=== PATIENT | female | born 2000 | race Two or more races ===

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

== ENCOUNTER 2021-08-07 14:46 | Outpatient (REF) | payer OTHER, SELFPAY ==
--- NOTE | ~2021-08-07 | XR_ITS ---
EXAMINATION: XR ANKLE, LEFT CLINICAL INFORMATION: Left ankle injury. COMPARISON: None TECHNIQUE: AP, lateral, and mortise views of the left ankle. FINDINGS: There is bimalleolar soft tissue swelling. The ankle mortise and subtalar joints are normal. No visible acute fracture, dislocation or subluxation seen. XR/XR ankle LT min 3V IMPRESSION: Bimalleolar is soft tissue swelling. Question ligamentous injury. No acute fracture, dislocation or subluxation seen.
== END 2021-08-07 14:47 | disposition home or self-care (01) ==
LOC: HO.XRAY 14:46
PROVIDERS: Visit Provider Pediatrics
DX: S99.912A Unspecified injury of left ankle, initial encounter (principal)
CPT/HCPCS: 73610

== ENCOUNTER 2023-11-06 13:27 | Outpatient (AMB) | payer OTHER, SELFPAY ==
--- NOTE | 2023-11-06 13:29 | A.OFFPC_ITS ---
Vital Signs 11/06/23 13:32 Height 5 ft 1 in Weight 156 lb BMI 29.5 BP 100/70 Blood Pressure Location Rt brachial Position Sitting Pulse 98 Pulse Source Pulse Oximeter Pulse Oximetry (%) 99 Oxygen Delivery Method Room Air Intake Visit Reasons: f/u possible physical Intake Note: Patient is here today for a physical and [place] from [employer] 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 Required: No Consulting Networking Engineer: Present Accompanied by: Mother Allergies Seasonal Allergies Allergy (Mild, Verified 11/07/23 06:25) Dry Eye Medication List - Last Reconciled 11/07/23 by Ilya Cope MD No Known Home Meds Tobacco use date assessed: 11/06/23 Dental Screening Dental Screen Date: 11/06/23 Did you have a dental visit in the last 12 months?: Yes Did you have a dental problem in the last 6 months where you did not have access to dental care?: No Was dental information given to patient?: Patient has dentist HPI f/u possible physical HPI Details 23 yr old female presents to the office requesting a physical. She is accompanied by her mother. In addition patient is requesting a neuro psyc eval and a dermatolgy referral. Pt has a diagnosis of Cognitive developmental delay. This was diagnosed in childhood after a neuropsych eval. Patient always needed assistance in school and has finally completed her HS diploma. She is employed one day a week and is registered for [employer]. Always supervised. She is able to do her own personal hygiene. Mother wants another neuro psych eval done as an adult. Patient has warts in her toes and a rash on the scalp that is progressively worsening. Her periods are regular and she is on contraception. REPLACED BY [facility] Medical History Cognitive developmental delay Warts of foot Seborrheic dermatitis Surgical History No pertinent past surgical history Family History Mother Mental and behavioral problem HTN (hypertension) Father Mental and behavioral problem Substance abuse Other Mental health disorder Substance use disorder Social History Household Members: Adopted Family Housing: House Alcohol intake: never Patient Tobacco Use Status: Never used Tobacco e-Cigarette/Vaping Use: Never Used Second Hand Smoke Exposure: No service: No Current occupational status: employed Current occupation: [employer] Cognitive needs: No Hearing needs: No Vision needs: Yes (glasses ) Questionnaire PHQ-9 Over the last 2 weeks, how often have you been bothered by any of the following problems? 1. Little interest or pleasure in doing things: not at all 2. Feeling down, depressed, or hopeless: not at all 3. Trouble falling or staying asleep, or sleeping too much: not at all 4. Feeling tired or having little energy: not at all 5. Poor appetite or overeating: not at all 6. Feeling bad about yourself - or that you are a failure or have let yourself or your family down: not at all 7. Trouble concentrating on things, such as reading the newspaper or watching television: not at all 8. Moving or speaking so slowly that other people could have noticed. Or the opposite - being so fidgety or restless that you have been moving around a lot more than usual: not at all 9. Thoughts that you would be better off or of hurting yourself in some way: not at all Total score: 0 Depression Screening Interpretation: Negative Depression Screening Done: Yes Source: Developed by Drs. Vinny Gamign, Kay Ayala, Keagan Camacho and colleagues, with an educational christine from [employer]. Thrive Questionnaire Date Thrive assessed: 11/06/23 I am a: Patient What is your living situation today?: I have a steady place to live Within the past 12 months, did the food you bought not last and you didn't have the money to get more?: Never true Within the past 12 months, did you worry whether your food would run out before you got money to buy more?: Never true Do you have trouble paying for medicines?: No Do you have trouble getting transportation to medical appointments?: No Do you have trouble paying your heating and electricity bill?: No Do you have trouble taking care of your child, family member or friend?: No Do you have trouble with day-to-day activities such as bathing, preparing meals, shopping, managing finances, etc.?: No Are you currently unemployed and looking for a job?: No Are you interested in more education?: No Currently or been in a relationship where the following occur: no concerns reported THRIVE Score: 0 AUDIT C Alcohol Use Questionnaire (AUDIT-C) 1. How often do you have a drink containing alcohol?: Never Total Score: 0 DONTAE-7 AMB Questionnaire DONTAE-7 Date DONTAE - 7 assessed: 11/06/23 Feeling nervous, anxious, or on edge: 0 = Not at all Not being able to stop or control worryin = Not at all Worrying too much about different things: 0 = Not at all Trouble relaxin = Not at all Being so restless that it is hard to sit still: 0 = Not at all Becoming easily annoyed or irritable: 0 = Not at all Feeling afraid as if something awful might happen: 0 = Not at all Total DONTAE-7 score (0-4 normal; 5-9 mild; 10-14 moderate; 15-21 severe): 0 Source: Developed by Drs. Vinny Gaming, Kay Ayala, Keagan Camacho and colleagues, with an educational christine from [employer]. Physical exam (Primary Care) Vital Signs: Last Vital Signs Pulse 98 11/06/23 13:32 BP 100/70 11/06/23 13:32 Pulse Ox 99 11/06/23 13:32 Oxygen Delivery Method Room Air 11/06/23 13:32 BMI result Body Mass Index 29.5 Tobacco/Smoking Status: Tobacco use Status Tobacco use date assessed 11/06/23 11/06/23 13:37 Patient Tobacco Use Status Never used Tobacco 11/06/23 13:37 e-Cigarette/Vaping Use Never Used 11/06/23 13:37 PHQ-9: PHQ-9 Score PHQ-9: Total score 0 11/06/23 15:49 Depression Screening Interpretation: Negative Thrive Assessment: Date of Thrive Assessment Date Thrive assessed 11/06/23 11/06/23 13:37 Currently or been in a relationship where the following occur: no concerns reported Const General: cooperative and healthy appearing Nutritional Appearance: well nourished Orientation/consciousness: patient oriented x3 Limitations: no limitations HENMT Head: Yes normal to inspection Eyes General: appearance normal, both eyes and all related structures Neck Neck: Yes normal visual inspection Chest Chest palpation & inspection: normal palpation of entire chest wall Resp Effort & Inspection: normal respiratory effort Skin Other: Feet: Warty outgrowths in all her toes. Scalp: Seborrhea Neuro General: patient oriented x3 Assessment and Plan Assessment & Plan (1) Cognitive developmental delay: Code(s): F81.9 - Developmental disorder of scholastic skills, unspecified Plan: I agreed with the request. Not sure where she should be referred. I have sent a message to the referral department for guidance. (2) Seborrheic dermatitis: Code(s): L21.9 - Seborrheic dermatitis, unspecified Plan: Dermatology appt scheduled. (3) Warts of foot: Code(s): B07.9 - Viral wart, unspecified Plan: Dermatology appt scheduled Orders: Orders UA and rflx microscopic 11/06/23 B07.9 - Viral wart, unspecified, F81.9 - Deve lopmental disorder of scholastic skills, unspecified, L21.9 - Seborrheic dermatitis, unspecified Basic Metabolic Panel 11/06/23 B07.9 - Viral wart, unspecified, F81.9 - Deve lopmental disorder of scholastic skills, unspecified, L21.9 - Seborrheic dermatitis, unspecified Complete Blood Count no Diff 11/06/23 B07.9 - Viral wart, unspecified, F81.9 - Developmental disorder of scholastic skills, unspecified, L21.9 - Seborrheic dermatitis, unspecified Lipid Panel 11/06/23 B07.9 - Viral wart, unspecified, F81.9 - Developmental disorder of scholastic skills, unspecified, L21.9 - Seborrheic dermatitis, unspecified Liver Panel 11/06/23 B07.9 - Viral wart, unspecified, F81.9 - Developmental dis order of scholastic skills, unspecified, L21.9 - Seborrheic dermatitis, unspecified Thyroid Stimulating Hormone 11/06/23 B07.9 - Viral wart, unspecified, F81.9 - Developmental disorder of scholastic skills, unspecified, L21.9 - Seborrheic dermatitis, unspecified Referrals Dermatology Referral B07.9 - Viral wart, unspecified, F81.9 - Developmental disorder of scholastic skills, unspecified, L21.9 - Seborrheic dermatitis, unspecified Coding Level of Care Code Est Pt Level 3 (34706) Est Pt Prev Care 18-39y(05132) Diagnoses Cognitive developmental delay F81.9 Seborrheic dermatitis L21.9 Warts of foot B07.9
[2023-11-06 13:32] VITALS: BP 100/70; PULSE 98; O2SAT 99; BMI 29.5
== END 2023-11-06 14:06 | disposition home or self-care (01) ==
PROVIDERS: PCP Nurse Practitioner Family; Visit Provider Internal Medicine
DX: Z00.00 Encounter for general adult medical examination without abnormal findings (principal); F81.9 Developmental disorder of scholastic skills, unspecified; L21.9 Seborrheic dermatitis, unspecified; B07.9 Viral wart, unspecified
CPT/HCPCS: 99213; 99395

== ENCOUNTER 2023-11-19 10:46 | Outpatient (REF) | payer OTHER, SELFPAY ==
[2023-11-19 12:03] LABS: Hemoglobin 13.3 g/dl (12.0-16.0); Mean Corpuscular HGB Conc 33.3 g/dl (31.0-35.0); Mean Corpuscular Hemoglobin 31.9 pg (27.0-33.0); Mean Corpuscular Volume 95.9 fL (80.0-98.0); Mean Platelet Volume 10.6 fL (9.4-12.3); Platelet Count 255 X10*3/uL (160-400); Red Blood Count 4.17 X10*6/uL (4.20-5.50); Red Cell Distribution Width 11.7 % (11.0-16.0)
[2023-11-19 13:17] LABS: Alanine Aminotransferase 25 U/L (0-31); Albumin Level 4.2 g/dL (3.5-5.0); Alkaline Phosphatase 71 U/L (39-117); Anion Gap 10 (12-20); Aspartate Amino Transferase 22 U/L (5-31); Bilirubin Direct 0.2 mg/dL (0.0-0.5); Bilirubin Total 0.9 mg/dL (0.0-1.0); Blood Urea Nitrogen 12 mg/dL (9-16); Carbon Dioxide 28 mmol/L (22-29); Chloride 105 mmol/L (96-108); Cholesterol 198 mg/dL (<200); Estimated Glomerular Filt Rate > 60; Glucose Random 83 mg/dL (60-115); HDL Cholesterol 70 mg/dL (>40); LDL Cholesterol Calculated 118 mg/dL (<100); Potassium 3.9 mmol/L (3.3-5.1); Sodium 139 mmol/L (135-145); Total Protein 7.1 g/dL (6.5-8.0); Triglycerides 52 mg/dL (<150)
[2023-11-19 13:21] LABS: Thyroid Stimulating Hormone 1.97 uIU/mL (0.32-4.0)
[2023-11-19 16:35] LABS: Glucose Urine UA Negative (Negative); Leukocyte Esterase Urine Small (1+) (Negative); Nitrite Urine Negative (Negative); PH 6.5 (5.0-9.0); Specific Gravity - Urine >= 1.030 (1.005-1.025); UMIC TRIGGER UA YES; Urine Blood Negative (Negative); Urine Ketones Negative (Negative); Urine Protein Negative (Neg-Trace)
[2023-11-19 16:36] LABS: Appearance Urine Hazy; Color Urine Yellow
[2023-11-19 18:23] LABS: Bacteria Urine 1+ (None Seen); Hyaline Casts Urine 0-2 /LPF (0-2); RBC Urine 0-2 /HPF (0-2); WBC Urine 0-5 /HPF (0-5)
== END 2023-11-19 10:47 | disposition home or self-care (01) ==
LOC: HO.LAB 10:46
PROVIDERS: PCP Internal Medicine; Visit Provider Internal Medicine
DX: B07.9 Viral wart, unspecified (principal); L21.9 Seborrheic dermatitis, unspecified; F81.9 Developmental disorder of scholastic skills, unspecified
CPT/HCPCS: 36415; 80048; 80061; 80076; 81001; 84443; 85027

== ENCOUNTER 2024-08-05 10:35 | Outpatient (AMB) | payer OTHER, SELFPAY ==
--- NOTE | 2024-08-05 10:45 | MHC.OFFVIS ---
Intake Visit Reasons: nexplaon removal per Sound Assistant: Sound Assistant Present (Dori Biggs, CASEY, Nya) Accompanied by: Self / Same As Patient Allergies Seasonal Allergies Allergy (Mild, Verified 08/05/24 10:46) Dry Eye HPI Comments Details: Presenting for Nexplanon removal, it was inserted in 08/01. [facility] Medical History Cognitive developmental delay Warts of foot Seborrheic dermatitis Surgical History No pertinent past surgical history Family History Mother Mental and behavioral problem HTN (hypertension) Father Mental and behavioral problem Substance abuse Other Mental health disorder Substance use disorder Social History Household Members: Adopted Family Housing: House Alcohol intake: never Patient Tobacco Use Status: Never used Tobacco e-Cigarette/Vaping Use: Never Used Second Hand Smoke Exposure: No service: No Current occupational status: employed Current occupation: [employer] Cognitive needs: No Hearing needs: No Vision needs: Yes (glasses ) Office Procedures Contraception Insert/Removal Details Details: Counseling/Consent: After discussing with the patient the risks of the procedure including bleeding, infection, scar tissue formation, , possible injury to blood vessels or nerves, chronic arm pain, blood transfusion, and irregular unpredictable bleeding Preopdx: Requesting Nexplanon removal Op: Nexplanon Removal Post op dx: same EBL= 10 cc Procedure: After discussing with the patient the risks of the procedure including bleeding, infection, scar tissue formation, the patient signed the consent and agreed with the plan; all questions answered. The patient was then put in the dorsal supine position with Left arm in which Nexplanon is located exposed. Then the area was scrubbed with betadine. Nexplanon was located next by palpation and the end closest to the elbow was marked with a sterile marker. 5cc 1% Xylocaine was used to anesthetize the area at the site near the tip of Nexplanon. Next, a 3 mm incision in the longitudinal direction of the arm at the tip of the implant was made and the Nexplanon was pushed toward the incision until the tip was visible. The implant was grasped with a curved mosquito forceps and pulled out gently. Then incision was closed with steri-strips approximating the edges and an adhesive bandage was applied. A pressure bandage was applied with sterile gauze to minimize bruising. At the end explained to the patient that she is not covered with contraception anymore and recommended for her to use another contraceptive method. Discharge instructions: Patient was instructed to call if any of the following occurs :temperature above 100.4, pain at the side of the incision, redness, discharge or gapping, arm pain or bleeding. All questions answered patient verbalized understanding . This note was generated with a voice recognition program. Some errors may have been overlooked during the review of this note. Sometimes these errors may affect the content or meaning of a given sentence. 24865 - Removal Office Meds Nexplanon 68 mg subdermal implant Performing Provider: Joseph Ledesma MD Performing Location: [facility] Documented (not given) by: Joseph Ledesma MD on 08/05/24 11:21 Dose Route Admin Location Dispensed Lot Number Expiration Date [facility] Advertising Consultant 1 implant subdermal ea Assessment & Plan Assessment & Plan (1) Nexplanon removal: Code(s): Z30.46 - Encounter for surveillance of implantable subdermal contraceptive Category: Medical Plan: Nexplanon removed, see procedure (2) Family planning: Code(s): Z30.09 - Encounter for other general counseling and advice on contraception Category: Social Hx Plan: Discussed with the patient the different options of control including control pills/Nuvaring, DMPA, different types of IUD ?s ( cu vs progesterone) , sterilization. All the pros, cons, risks and benefits of each were discussed with the patient. The patient decided to go ahead with Mirena IUD, so a more detailed discussion was carried on including mechanism of action, risks (infection, uterine perforation, failure with ectopic , septic AB, ovarian cyst and pelvic pain, increased breast cancer risk and others) benefits (efficient contraceptive method, others), GC/CG will be taken next visit and the patient was asked to call day one of next cycle for IUD insertion. Orders: Orders AMB Nexplanon/Implanon Insertion/Removal - Practice Supplied Today Z30.46 - Encounter for surveillance of implantable subdermal contraceptive Medications: New Nexplanon (etonogestrel) 1 implant subdermal ONCE 1 ea 0RF NS Z30.46 - Encounter for surveillance of implantable subdermal contraceptive Coding Level of Care Code New Pt Level 3 (60965) Procedure Only Diagnoses Nexplanon removal Z30.46 Family planning Z30.09 CPT Codes Details - Contraception: 00783 - Removal ([id number])
== END 2024-08-05 12:02 | disposition home or self-care (01) ==
PROVIDERS: PCP Internal Medicine; Visit Provider Obstetrics & Gynecology
DX: Z30.09 Encounter for other general counseling and advice on contraception (principal); Z30.46 Encounter for surveillance of implantable subdermal contraceptive
CPT/HCPCS: 11982; 99203

== ENCOUNTER → 2024-08-05 10:35 | Outpatient (BNVA) | payer OTHER, SELFPAY | PROVIDERS: PCP Internal Medicine; Visit Provider Obstetrics & Gynecology | DX: Z30.46 Encounter for surveillance of implantable subdermal contraceptive (principal) | CPT/HCPCS: 11982; 99202 ==

== ENCOUNTER → 2024-08-10 08:44 | Outpatient (BNVA) | payer OTHER, SELFPAY | PROVIDERS: PCP Internal Medicine; Visit Provider Obstetrics & Gynecology | DX: Z30.017 Encounter for initial prescription of implantable subdermal contraceptive (principal); Z32.02 Encounter for pregnancy test, result negative | CPT/HCPCS: 11981; 81025; J7307 ==

== ENCOUNTER 2024-08-10 09:18 | Outpatient (AMB) | payer OTHER, SELFPAY ==
--- NOTE | 2024-08-10 08:44 | A.OFFVIS_ITS ---
Vital Signs 08/10/24 08:48 Height 5 ft 1 in Weight 177 lb BMI 33.4 BP 112/60 Intake Visit Reasons: Nexplanon insertion Director Of Pupil Personnel Program Required: No Information Interpreted: non-clinical & clinical Medical Liaison: Medical Liaison Present (Dori PEÑA) Accompanied by: Self / Same As Patient Allergies Seasonal Allergies Allergy (Mild, Verified 08/10/24 08:57) Dry Eye Is last menstrual period known: No (nexplanon) HPI Comments Details: Presenting requesting Nexplanon insertion [facility] Medical History Cognitive developmental delay Warts of foot Seborrheic dermatitis Surgical History No pertinent past surgical history Family History Mother Mental and behavioral problem HTN (hypertension) Father Mental and behavioral problem Substance abuse Other Mental health disorder Substance use disorder Social History Household Members: Adopted Family Housing: House Alcohol intake: never Patient Tobacco Use Status: Never used Tobacco e-Cigarette/Vaping Use: Never Used Second Hand Smoke Exposure: No service: No Current occupational status: employed Current occupation: [employer] Cognitive needs: No Hearing needs: No Vision needs: Yes (glasses ) Review of Systems Const All systems reviewed & are unremarkable except as noted in HPI and below Reports as per HPI and Reports no additional complaints GI Reports no additional complaints Reports no additional complaints Physical Exam Vital Signs: Last Vital Signs BP 112/60 08/10/24 08:48 BMI result Body Mass Index 33.4 Office Procedures Contraception Insert/Removal Details Details: Preopdx: Requesting Nexplanon insertion Op: Nexplanon insertion Post op dx: same EBL= 10 cc Procedure: After discussing with the patient the risks of the procedure including bleeding, infection, scar tissue formation, , and irregular unpredictable bleeding, Alternative options were discussed with the patient including but not limited: control pills, patch, NuvaRing, Depo-medroxyprogesterone acetate, copper/Progesterone IUD, sterilization, vasectomy, others The patient signed the consent and agreed with the plan; all questions answered. Urine test done in the office was negative Iodine was used to scrub the area. The insertion site was identified, at the inner side of the left upper arm about 9 cm above the medial epicondyle of the humerus. Next Xylocaine 1% was used to anesthetize the insertion area, and then the sterile preloaded disposable NEXPLANON applicator carrying the implant from its blister was removed from its box. With the free hand, the skin around the insertion site was stretched with thumb and index finger, the skin was punctured with the tip of the needle angled about 30 degrees, next the applicator was lowered to a horizontal position. While lifting the skin with the tip of the needle, the needle was slided to its full length. The purple slider was unlocked next by pushing it slightly down. Then the slider was moved fully back until it stopped, the presence of the implant in the patient?s arm was verified. A band aid and a wrap were applied around the arm. Instructions were given to the patient to call if temp>100.4, severe pain or redness at the site of the insertion. Instructions given to patient to use a backup method for control for the 1st 2 weeks. Patient 'smother was present during the procedure and counseling. The patient was instructed that the date of removal is exactly 3 years from today's date This note was generated with a voice recognition program. Some errors may have been overlooked during the review of this note. Sometimes these errors may affect the content or meaning of a given sentence. 63485 - Insertion Office Meds Nexplanon 68 mg subdermal implant Performing Provider: Joseph Ledesma MD Performing Location: [facility] Documented (not given) by: Joseph Ledesma MD on 08/10/24 09:13 Dose Route Admin Location Dispensed Lot Number Expiration Date [facility] Rigger Up 1 implant subdermal ea Results AMB Test Urine AMB Test Urine Negative Last Edit by CASEY Escoto on 08/10/24 08:51 Results Reviewed Results Reviewed: Laboratory Last Values [facility] Clinic Negative 08/10/24 08:51 Assessment & Plan Assessment & Plan (1) Nexplanon insertion: Code(s): Z30.017 - Encounter for initial prescription of implantable subdermal contraceptive Category: Medical Plan: Discussed with the patient the different options of control including control pills/Nuvaring, DMPA, IUD (Mirena, Paraguard), sterilization. All the pros, cons, risks and benefits of each were discussed with the patient. The patient decided to go ahead Nexplanon, so a more detailed discussion re: Nexplanon including mechanism of action, benefits, risks Nexplanon inserted, see procedure note Orders: Orders AMB HCG Urine Test Today Z32.02 - Encounter for test, result negative AMB Nexplanon/Implanon Insertion/Removal - Practice Supplied Today Z30.017 - Encounter for initial prescription of implantable subdermal contraceptive Medications: New Nexplanon (etonogestrel) 1 implant subdermal ONCE 1 ea 0RF NS Z30.017 - Encounter for initial prescription of implantable subdermal contraceptive Coding Level of Care Code Est Pt Level 3 (06283) Procedure Only Diagnoses Nexplanon insertion Z30.017 CPT Codes Details - Contraception: 46377 - Insertion ([id number])
[2024-08-10 08:48] VITALS: BP 112/60; BMI 33.4
--- OUTSIDE RECORDS SUMMARY | 2024-08-10 09:16 | XMS_ITS | Encounter Summary ---
Author Organization [facility] Address [address] [place] [address] Phone Care Team Providers Care Dry Pan Charger Name Role Phone Wendy Jones MD Primary Care Provider [phone] Encounter Details Date Type Department Care Team ([facility] st Contact Info) Description 01/24/2017 Conversion Encounter [facility] [address] [place] [address] Social History Tobacco Use Types Packs/Day Years Used Date Smoking Tobacco: Never Comments:Never smoker Comments Unknown Sex and Gender Information Value Date Recorded Sex Assigned at Not on file Legal Sex Female 5:16 PM EDT Gender Identity Not on file Sexual Orientation Not on file documented as of this encounter Plan of Treatment Not on file documented as of this encounter Visit Diagnoses Not on filedocumented in this encounter Care Teams Dry Pan Charger Relationship Specialty Start Date End Date Wendy Jones MD [address] [place] [address] PCP - General 01/18/17 11/05/22 documented as of this encounter
--- OUTSIDE RECORDS SUMMARY | 2024-08-10 09:16 | XMS_ITS | Encounter Summary ---
Author Organization [facility] Address [address] [place] [phone] Phone Care Team Providers Care Product Support Representative Name Role Phone Wendy Jones MD Primary Care Provider Encounter Details Date Type Department Care Team (Late st Contact Info) Description 02/22/2011 Documentation [facility] Family Medicine [address] [place] [address] Family Medicine, Physician [address] [place], [place] [phone] Social History Tobacco Use Types Packs/Day Years Used Date Smoking Tobacco: Never Assessed Comments Unknown Sex and Gender Information Value Date Recorded Sex Assigned at Not on file Legal Sex Female 5:16 PM EDT Gender Identity Not on file Sexual Orientation Not on file documented as of this encounter Plan of Treatment Not on file documented as of this encounter Visit Diagnoses Not on filedocumented in this encounter Care Teams Product Support Representative Relationship Specialty Start Date End Date Wendy Jones MD [address] [place] [id number] PCP - General 01/18/17 11/05/22 documented as of this encounter
--- OUTSIDE RECORDS SUMMARY | 2024-08-10 09:16 | XMS_ITS | Encounter Summary ---
Author Organization [facility] Address [address] [place] [phone] Phone Care Team Providers Care Roll Off Driver Name Role Phone Wendy Jones MD Primary Care Provider [phone] Encounter Details Date Type Department Care Team (Late st Contact Info) Description 10/24/2011 Documentation [facility] [place] Medicine [address] [place] [address] Family Medicine, Physician [address] [place], [place] [phone] Social History Tobacco Use Types Packs/Day Years [...] on filedocumented in this encounter Care Teams Roll Off Driver Relationship Specialty Start Date End Date Wendy Jones MD [address] [place] [id number] PCP - General 01/18/17 11/05/22 documented as of this encounter
--- OUTSIDE RECORDS SUMMARY | 2024-08-10 09:16 | XMS_ITS | Encounter Summary ---
Author Organization [facility] Address [address] [place] [phone] Phone Care Team Providers Care Department Store Salesperson Name Role Phone Wendy Jones MD Primary Care Provider [phone] Encounter Details Date Type Department Care Team (Late st Contact Info) Description 09/20/2010 Documentation [facility] Family Medicine [address] [place] [address] Family Medicine, Physician [address] [place], [place] [phone] Social History Tobacco Use Types Packs/Day Years [...] on filedocumented in this encounter Care Teams Department Store Salesperson Relationship Specialty Start Date End Date Wendy Jones MD [address] [place] [phone] PCP - General 01/18/17 11/05/22 documented as of this encounter
--- OUTSIDE RECORDS SUMMARY | 2024-08-10 09:16 | XMS_ITS | Encounter Summary ---
Author Organization [facility] Address [address] [place] [address] Phone Care Team Providers Care Waiter Waitress Name Role Phone Wendy Jones MD Primary Care Provider [phone] Encounter Details Date Type Department Care Team (Late st Contact Info) Description 04/09/2012 Documentation [facility] Family Medicine [address] [place] [address] Family Medicine, Physician [address] [place], [place] [phone] Social History Tobacco Use Types Packs/Day Years [...] on filedocumented in this encounter Care Teams Waiter Waitress Relationship Specialty Start Date End Date Wendy Jones MD [address] [place] [address] PCP - General 01/18/17 11/05/22 documented as of this encounter
--- OUTSIDE RECORDS SUMMARY | 2024-08-10 09:16 | XMS_ITS | Encounter Summary ---
Author Organization [facility] Address [address] [place] [address] Phone Care Team Providers Care Denture Contour Wire Specialist Name Role Phone Wendy Jones MD Primary Care Provider [phone] Encounter Details Date Type Department Care Team (Late st Contact Info) Description 03/26/2011 Documentation [facility] [place] [address] [place] [address] Family Medicine, Physician [address] [place], [place] [phone] Social History Tobacco Use Types Packs/Day Years [...] on filedocumented in this encounter Care Teams Denture Contour Wire Specialist Relationship Specialty Start Date End Date Wendy Jones MD [address] [place] [address]31 PCP - General 01/18/17 11/05/22 documented as of this encounter
--- OUTSIDE RECORDS SUMMARY | 2024-08-10 09:16 | XMS_ITS | Clinical Summary ---
Author Organization [facility] Address [address] [place] [address] Phone Care Team Providers Care Director Patient Name Role Phone Unavailable Primary Care Provider Unavailabl e Allergies No known active allergies Medications No known medications Active Problems Problem Noted Date Diagnosed Date Nexplanon in place 07/24/2021 Overview (07/27/2021): Placed 02/2017. Seen 07/24/21, overdue for removal. 07/27/21 - Nexplanon device removed, new Nexplanon inserted during same procedure. Assessment & Plan (04/25/2022 9:01 AM EST): 07/27/21 - Nexplanon device removed, new Nexplanon inserted during same procedure. Assessment & Plan (07/27/2021 2:44 PM EST): Nexplanon device removed, new Nexplanon inserted during same procedure. Urine hcg negative today. Assessment & Plan (07/24/2021 3:41 PM EST): Placed 02/2017. Seen 07/24/21, overdue for removal. Order consent form signed, so new Nexplanon device will be ordered. When available, she can schedule appointment for removal and reinsertion of Nexplanon. Aware she will need to be able to give urine specimen at that appointment for test. ADHD (attention deficit hype ractivity disorder), combined type 04/23/2011 Overview (02/13/2018): Dx by neuropsych 01/2011 but also with M.R. Mom does not want stim meds. IQ 62 Assessment & Plan (04/25/2022 9:00 AM EST): No meds Assessment & Plan (02/25/2020 1:52 PM EDT): No meds Intellectual functioning disability 07/11/2009 Overview (04/25/2022): Dx with Mild Intellectual disability ( IQ 62 ) by neuropsych 01/2011.Urine organic acids chromosome analysis, fragile-X DNA, , MRI of brain and spine were all normal. There is no evidence that she has an underlying progressive, neurological condition. nexplanon implanted - 02/2017 , 07/2021 Assessment & Plan (04/25/2022 9:32 AM EST): Getting supports through school till 22 years of age Mother has proxy guardianship - this is what [facility] recommends now Assessment & Plan (02/25/2020 1:52 PM EDT): Getting supports through school till 22 years of age Assessment & Plan (02/16/2019 9:40 AM EDT): In Functional Skills classroom at [place] Next Fall will need to see telecom network manager again about getting another nexplanon Resolved Problems Problem Noted Date Diagnosed Date Resolved Date '[id number]' infant wit h signs of malnutrition 02/16/2019 02/25/2020 Counseling and coordination of care 02/16/2019 06/30/2021 Precocious puberty 02/13/2018 8 Overview (02/13/2018): Is being followed by Endo, received Lupron, then had Histrelin implant x 2, removed in 2013. Discharged from Endo FU 06/2015. PDD (pervasive developmental disorder) 07/11/2009 02/16/2019 Overview (02/13/2018): There is no evidence of an underlying progressive, neurological condition. Dx with Mild MR ( IQ 62 ) by neuropsych 01/2011. Pt has full SPED in school Pt with signif language delays Immunizations Immunization Administration Dates Next Due COVID-19 Pfizer, bivalent, 12+ years 04/25/2022 DTaP 5 09/20/2005, 4,04/08/2002,01/16,2001 H1N1 07/11/2009 HPV, Quadrivalent 07/21/2013,03/19/2013,01/07/20 13 Hep A, ped/adol 01/12/2014,12/06/2010 Hep B, ped/adol 04/11/2005, 2,2001,08/14 Hib (PRP-T) 12/30/2002, 2,01/16/2002,10/15 IPV 09/20/2005, 3,01/16/2002,10/15 Influenza, injectable, quadr ivalent, preservative free 04/25/2022,04/24/2021,02/05/2020,02/16,02/02/2016 MMR 09/20/2005,10/14/2002 Meningococcal Conj (Menactra) MCV4P 02/16/2019,0 01/06/2013 Pneumococcal Conjugate 12/30/2002,2001,01/16/2002,10/15 Tdap 01/06/2013 Varicella 10/24/2007,10/14/2002 Family History * Patient is adopted Medical History Relation Name Comments Alcoholism Father Dnae Asthma Mother Funmilayo Relation Name Status Comments Father Dane Mother Funmilayo Alive Social History Tobacco Use Types Packs/Day Years Used Date Smoking Tobacco: Never Smokeless Tobacco: Never Comments:Never smoker Alcohol Use Standard Drinks/Week Comments No 0 (1 standard drink = 0.6 oz pur e alcohol) Hunger/Food Answer Date Recorded In the last 12 months, did y ou or your family ever eat less than you felt you should because there wasn't enough money for food? No 04/25/2022 Stable Housing Answer Date Recorded Are you worried that in the next 2 months you may not have stable housing? No 04/25/2022 Transportation Concerns Answer Date Rec orded In the last 12 months, have you or your family ever had to go without healthcare because you didn't have a way to get there? No 04/25/2022 Hazards in Home Answer Date Recorded Think about the place you li ve. Do you have problems with any of the following? Pests (mice or roaches), mold, no/not working smoke detectors, water leaks, no window guards. No 2021 Financing Utilities Answer Date Recorde d In the last 12 months, has t he electric, gas, oil, or water company threatened to shut off your services in your home? No 04/25/2022 Safety at Home Answer Date Recorded Are you or your family worried about feeling saf e in your home? No 04/25/2022 Outside Support Answer Date Recorded Do you feel that you need mo re support from other people or programs to help you care for yourself or your family? No 04/25/2022 Understanding Health Concerns Answer Da te Recorded Do you need help understandi ng your or your child's healthcare needs (diagnosis, medications, plan, etc.)? No 04/25/2022 Financing Health Concerns Answer Date R ecorded In the last 12 months, was t here a time when your child needed to see a doctor or get medications or supplies but could not because of cost? No 04/25/2022 Missing School or Work Answer Date Lamin rded Did you or your child miss s chool or work because of a health problem that could have been avoided? No 04/25/2022 Comments No Sex and Gender Information Value Date Recorded Sex Assigned at Not on file Legal Sex Female 5:16 PM EDT Gender Identity Not on file Sexual Orientation Not on file Last Filed Vital Signs Vital Sign Reading Time Taken Comments Blood Pressure 107/76 04/25/2022 8:50 AM EST Pulse 98 04/25/2022 8:50 AM EST Temperature 35.7 ??C (96.2 ??F) 04/25/2022 8:50 AM ES T Respiratory Rate - - Oxygen Saturation 95% 04/25/2022 8:50 AM EST Inhaled Oxygen Concentration - - Weight 67 kg (147 lb 12.8 oz) 04/25/2022 8:50 AM EST Height 156.2 cm (5' 1.5 ) 04/25/2022 8:50 AM EST Body Mass Index 27.47 04/25/2022 8:50 AM EST Plan of Treatment Health Maintenance Due Date Last Done Comments Men B Vaccine (1 of 2 - Standard) 2017 DTaP,Tdap,and Td Vaccines (7 - Td or Tdap) 01/06/2023 01/06/2013, 09/20/2005, 06/24/2003, Additional history exists Influenza Vaccines (#1) 2024 04/25/20, 04/24/2021, 02/05/2020, Additional history exists COVID-19 Vaccine (5 - 2023-2 5 season) 2024 04/25/2022, 05/14/2021, 11/09/2020, Additional history exists Chlamydia and Gonorrhea Screening 06/10/2024 04/25/2022, 04/24/2021, 02/16/2019, Additional history exists HIB Vaccines Completed 12/30/2002, 03/12, 01/16/2002, Additional history exists Pneumococcal Vaccine Completed 12/30/2002, 04/08/2002, 01/16/2002, Additional history exists Hepatitis B Vaccines Completed 04/11/2005, 01/16/2002, 2001, Additional history exists IPV Vaccines Completed 09/20/2005, 07/11, 01/16/2002, Additional history exists MMR Vaccines Completed 09/20/2005, 10/14/2002 Varicella Vaccines Completed 10/24/2007, 10/14/2002 HPV Vaccines Completed 07/21/2013, 03/10, 01/06/2013 Hepatitis A Vaccines Completed 01/12/2014, 12/07/19 11 Meningococcal Vaccine Completed 02/16/2019, 013 Procedures * Due to [place] law, this organization might not be sharing sensitive test results. Procedure Name Priority Date/Time Associated Diagnosis Comments CHLAMYDIA AND GONORRHEA, AMPLIFIED Routine 04/25/2022 9:05 AM EST Encounter for screening examination for sexually transmitted disease from Last 3 Months or Most Recently Relevant to Health Maintenance Results * Due to [place] law, this organization might not be sharing sensitive test results. * Chlamydia and Gonorrhoea, Amplified (04/25/2022 9:05 AM EST) Chlamydia Trachomatis, DNA Probe NEGATIVE (NEG) [facility] Comment: No Chlamydia Trachomatis RNA detected in this patient's sample ? (REFERENCE RANGE/NORMAL VALUE: NOT DETECTED) ? Note: This test uses sales and service engineer- mediated amplification method to detect rRNA from C. Trachomatis URINE GC AMP PROBE NEGATIVE (NEG) [facility] Comment: No Neisseria Gonorrhoeae RNA detected in this patient's sample ? (REFERENCE RANGE/NORMAL VALUE: NOT DETECTED) ? NOTE: This test uses sales and service engineer-mediated amplification method to detect rRNA from N.Gonorrhoeae. A negative result does not preclude infection. In the case of a negative urine result, testing of an endocervical(female) or urethral (male) specimen is recommended if there is high clinical suspicion of infection. Due to very high sensitivity of Nucleic Acid Amplification Test, false positive results may occur. Therefore, specimen handling is extremely important. In patients in whom the disease is unlikely, additional sample for testing should be considered after an initial positive result. The performance characteristics of this test have not been evaluated in children. The Aptima Combo2 assay is not intended for the evaluation of suspected sexual abuse or for other medico-legal indications. The ordering provider should assess if the patient had consensual sex without risk of sexual abuse. Consult the [facility] if needed. Contact phone number . Therapeutic failure or success cannot be determined with the Aptima Combo2 assay since nucleic acid may persist following appropriate antimicrobial therapy. The Centers for Disease Control and Prevention (CDC) recommends confirmatory retesting using culture or a different nucleic acid amplification test when positive results occur, if indicated. Testing performed or reported by [facility], a Service of [facility], [facility] [place] [address] Danial Cash MD, Spice Fumigator [facility]# [id number] Urine (Urine) 04/25/2022 9:0 5 AM EST 04/25/2022 2:42 PM EST us Wendy Jones MD LAB MICROBIOLOGY - GENERAL ORDER TAPAN Final Result [facility] from Last 3 Months or Most Recently Relevant to Health Maintenance
--- OUTSIDE RECORDS SUMMARY | 2024-08-10 09:16 | XMS_ITS | Encounter Summary ---
Author Organization [facility] Address [address] [place] [address] Phone Care Team Providers Care Assisted Living Director Name Role Phone Wendy Jones MD Primary Care Provider Encounter Details Date Type Department Care Team (Late st Contact Info) Description 03/23/2011 Documentation [facility] [place] [address] [place] [address] Family Medicine, Physician [address] [place], [place] [phone] Social History Tobacco Use Types Packs/Day Years [...] on filedocumented in this encounter Care Teams Assisted Living Director Relationship Specialty Start Date End Date Wendy Jones MD [address] [place] [address] 14055 PCP - General 01/18/17 11/05/22 documented as of this encounter
--- OUTSIDE RECORDS SUMMARY | 2024-08-10 09:16 | XMS_ITS | Encounter Summary ---
Author Organization [facility] Address [address] [place] [address] Phone Care Team Providers Care Line Palletizer Name Role Phone Wendy Jones MD Primary Care Provider [phone] Encounter Details Date Type Department Care Team (Late st Contact Info) Description 04/13/2011 Documentation [facility] [place] Family Medicine [address] [place] [address] Family Medicine, Physician [address] [place], [place] [phone] Social History Tobacco Use Types Packs/Day Years [...] on filedocumented in this encounter Care Teams Line Palletizer Relationship Specialty Start Date End Date Wendy Jones MD [address] [place] [address] PCP - General 01/18/17 11/05/22 documented as of this encounter
--- OUTSIDE RECORDS SUMMARY | 2024-08-10 09:16 | XMS_ITS | Encounter Summary ---
Author Organization [facility] Address [address] [place] [address] Phone Care Team Providers Care Ecological Economist Name Role Phone Wendy Jones MD Primary Care Provider [phone] Encounter Details Date Type Department Care Team (Late st Contact Info) Description 10/11/2011 Documentation [facility] [place] Family Medicine [address] [place] [address] Family Medicine, Physician [address] [place], [place] [phone] Social History Tobacco Use Types Packs/Day Years [...] on filedocumented in this encounter Care Teams Ecological Economist Relationship Specialty Start Date End Date Wendy Jones MD [address] [place] [address]49 PCP - General 01/18/17 11/05/22 documented as of this encounter
--- OUTSIDE RECORDS SUMMARY | 2024-08-10 09:16 | XMS_ITS | Encounter Summary ---
Author Organization [facility] Address [address] [place] [address] Phone Care Team Providers Care Apartment Leasing Manager Name Role Phone Wendy Jones MD Primary Care Provider [phone] Encounter Details Date Type Department Care Team (Late st Contact Info) Description 04/04/2012 Documentation [facility] [place] Family [place] [address] [place] [address] Family Medicine, Physician [address] [place], [place] [phone] Social History Tobacco Use Types Packs/Day Years [...] on filedocumented in this encounter Care Teams Apartment Leasing Manager Relationship Specialty Start Date End Date Wendy Jones MD [address] [place] [address]12 PCP - General 01/18/17 11/05/22 documented as of this encounter
--- OUTSIDE RECORDS SUMMARY | 2024-08-10 09:16 | XMS_ITS | Encounter Summary ---
Author Organization [facility] Address [address] [place] [address] Phone Care Team Providers Care Clinical Ob Name Role Phone Wendy Jones MD Primary Care Provider [phone] Encounter Details Date Type Department Care Team (Late st Contact Info) Description 04/15/2012 Documentation [facility] [place] [address] [place] [address] Family Medicine, Physician [address] [place], [place] [phone] Social History Tobacco Use Types Packs/Day Years [...] on filedocumented in this encounter Care Teams Clinical Ob Relationship Specialty Start Date End Date Wendy Jones MD [address] [place] [address] PCP - General 01/18/17 11/05/22 documented as of this encounter
--- OUTSIDE RECORDS SUMMARY | 2024-08-10 09:16 | XMS_ITS | Encounter Summary ---
Author Organization [facility] Address [address] [place] [address] Phone Care Team Providers Care Paralegal Name Role Phone Wendy Jones MD Primary Care Provider Encounter Details Date Type Department Care Team (Late st Contact Info) Description 04/03/2012 Documentation [facility] [place] Family Medicine [address] [place] [address] Family Medicine, Physician [address] [place], [place] [phone] Social History Tobacco Use Types Packs/Day Years [...] on filedocumented in this encounter Care Teams Paralegal Relationship Specialty Start Date End Date Wendy Jones MD [address] [place] [address] PCP - General 01/18/17 11/05/22 documented as of this encounter
--- OUTSIDE RECORDS SUMMARY | 2024-08-10 09:16 | XMS_ITS | Encounter Summary ---
Author Organization [facility] Address [address] [place] [address] Phone Care Team Providers Care Health Information Internship Name Role Phone Wendy Jones MD Primary Care Provider [phone] Encounter Details Date Type Department Care Team (Late st Contact Info) Description 03/27/2011 Documentation [facility] [place] Family Medicine [address] [place] [address] Family Medicine, Physician [address] [place], [place] [phone] Social History Tobacco Use Types Packs/Day Years [...] on filedocumented in this encounter Care Teams Health Information Internship Relationship Specialty Start Date End Date Wendy Jones MD [address] [place] [address] 67538 PCP - General 01/18/17 11/05/22 documented as of this encounter
--- OUTSIDE RECORDS SUMMARY | 2024-08-10 09:16 | XMS_ITS | Encounter Summary ---
Author Organization [facility] Address [address] [place] [address] Phone Care Team Providers Care Manager Intermediate Name Role Phone Wendy Jones MD Primary Care Provider [phone] Encounter Details Date Type Department Care Team (Late st Contact Info) Description 06/15/2016 Documentation [facility] [place] [address] [place] [address] Family Medicine, Physician [address] [place], [place] [phone] Social History Tobacco Use Types Packs/Day Years [...] on filedocumented in this encounter Care Teams Manager Intermediate Relationship Specialty Start Date End Date Wendy Jones MD [address] [place] [address] PCP - General 01/18/17 11/05/22 documented as of this encounter
--- OUTSIDE RECORDS SUMMARY | 2024-08-10 09:16 | XMS_ITS | Encounter Summary ---
Author Organization [facility] Address [address] [place] [address] Phone Care Team Providers Care Block Making Machine Operator Name Role Phone Wendy Jones MD Primary Care Provider [phone] Encounter Details Date Type Department Care Team (Late st Contact Info) Description 03/19/2012 Documentation [facility] [place] Family Medicine [address] [place] [address] Family Medicine, Physician [address] [place], [place] [phone] Social History Tobacco Use Types Packs/Day Years [...] on filedocumented in this encounter Care Teams Block Making Machine Operator Relationship Specialty Start Date End Date Wendy Jones MD [address] [place] [address] PCP - General 01/18/17 11/05/22 documented as of this encounter
--- OUTSIDE RECORDS SUMMARY | 2024-08-10 09:16 | XMS_ITS | Encounter Summary ---
Author Organization [facility] Address [address] [place] [address] Phone Care Team Providers Care Pug Machine Operator Name Role Phone Wendy Jones MD Primary Care Provider [phone] Encounter Details Date Type Department Care Team (Late st Contact Info) Description 10/15/2011 Documentation [facility] [place] Family Medicine [address] [place] [address] Family Medicine, Physician [address] [place], [place] [phone] Social History Tobacco Use Types Packs/Day Years [...] on filedocumented in this encounter Care Teams Pug Machine Operator Relationship Specialty Start Date End Date Wendy Jones MD [address] [place] [address]996 PCP - General 01/18/17 11/05/22 documented as of this encounter
--- OUTSIDE RECORDS SUMMARY | 2024-08-10 10:06 | XMS_ITS | Encounter Summary ---
Author Organization [facility] Address [address] [place] [address] Phone Care Team Providers Care Enterer Name Role Phone Wendy Jones MD Primary Care Provider [phone] Encounter Details Date Type Department Care Team (Late st Contact Info) Description 04/04/2012 Documentation [facility] [place] [address] [place] [address] Family Medicine, Physician [address] [place], [place] [phone] Social History Tobacco Use Types Packs/Day Years [...] on filedocumented in this encounter Care Teams Enterer Relationship Specialty Start Date End Date Wendy Jones MD [address] [place] [address] PCP - General 01/18/17 11/05/22 documented as of this encounter
--- OUTSIDE RECORDS SUMMARY | 2024-08-10 10:06 | XMS_ITS | Encounter Summary ---
Author Organization [facility] Address [address] [place] [address] Phone Care Team Providers Care Clinical Engineer Name Role Phone Wendy Jones MD Primary Care Provider [phone] Encounter Details Date Type Department Care Team (Late st Contact Info) Description 10/11/2011 Documentation [facility] [place] [address] [place] [address] Family Medicine, Physician [address] [place], [place] [phone] Social History Tobacco Use Types Packs/Day Years [...] filedocumented in this encounter Care Teams Clinical Engineer Relationship Specialty Start Date End Date Wnedy Jones MD [address] [place] [address] PCP - General 01/18/17 11/05/22 documented as of this encounter
--- OUTSIDE RECORDS SUMMARY | 2024-08-10 10:06 | XMS_ITS | Encounter Summary ---
Author Organization [facility] Address [address] [place] [address] Phone Care Team Providers Care Bread Dough Mixer Name Role Phone Wendy Jones MD Primary Care Provider [phone] Encounter Details Date Type Department Care Team (Late st Contact Info) Description 02/22/2011 Documentation [facility] [place] Family [place] [address] [place] [address] Family Medicine, Physician [address] [place], [place] [phone] Social History Tobacco Use Types Packs/Day Years [...] on filedocumented in this encounter Care Teams Bread Dough Mixer Relationship Specialty Start Date End Date Wendy Jones MD [address] [place] [address] 26026 PCP - General 01/18/17 11/05/22 documented as of this encounter
--- OUTSIDE RECORDS SUMMARY | 2024-08-10 10:06 | XMS_ITS | Encounter Summary ---
Author Organization [facility] Address [address] [place] [address] Phone Care Team Providers Care Medical Billing And Coding Specialist Name Role Phone Wendy Jones MD Primary Care Provider [phone] Encounter Details Date Type Department Care Team (Late st Contact Info) Description 04/03/2012 Documentation [facility] [place] Family Medicine [address] [place] [address] Family Medicine, Physician [address] [place], [place] [phone] Social History Tobacco Use Types Packs/Day Years [...] on filedocumented in this encounter Care Teams Medical Billing And Coding Specialist Relationship Specialty Start Date End Date Wendy Jones MD [address] [place] [address] PCP - General 01/18/17 11/05/22 documented as of this encounter
--- OUTSIDE RECORDS SUMMARY | 2024-08-10 10:06 | XMS_ITS | Encounter Summary ---
Author Organization [facility] Address [address] [place] [address] Phone Care Team Providers Care Spa Director Name Role Phone Wendy Jones MD Primary Care Provider [phone] Encounter Details Date Type Department Care Team (Late st Contact Info) Description 03/23/2011 Documentation [facility] [place] [address] [place] [address] Family Medicine, Physician [address] [place], [place] [phone] Social History Tobacco Use Types Packs/Day Years [...] on filedocumented in this encounter Care Teams Spa Director Relationship Specialty Start Date End Date Wendy Jones MD [address] [place] [address] PCP - General 01/18/17 11/05/22 documented as of this encounter
--- OUTSIDE RECORDS SUMMARY | 2024-08-10 10:06 | XMS_ITS | Encounter Summary ---
Author Organization [facility] Address [address] [place] [address] Phone Care Team Providers Care Senior Windows Systems Engineer Name Role Phone Wendy Jones MD Primary Care Provider [phone] Encounter Details Date Type Department Care Team ([facility] st Contact Info) Description 01/24/2017 Conversion Encounter [facility] [address] [place] [address] Social History Tobacco Use Types Packs/Day Years [...] on filedocumented in this encounter Care Teams Senior Windows Systems Engineer Relationship Specialty Start Date End Date Wendy Jones MD [address] [place] [address] PCP - General 01/18/17 11/05/22 documented as of this encounter
--- OUTSIDE RECORDS SUMMARY | 2024-08-10 10:06 | XMS_ITS | Encounter Summary ---
Author Organization [facility] Address [address] [place] [address] Phone Care Team Providers Care Network Security Officer Name Role Phone Wendy Jones MD Primary Care Provider Encounter Details Date Type Department Care Team (Late st Contact Info) Description 03/19/2012 Documentation [facility] [place] Family Medicine [address] [place] [address] Family Medicine, Physician [address] [place], [place] [phone] Social History Tobacco Use Types Packs/Day Years [...] on filedocumented in this encounter Care Teams Network Security Officer Relationship Specialty Start Date End Date Wendy Jones MD [address] [place] [address] PCP - General 01/18/17 11/05/22 documented as of this encounter
--- OUTSIDE RECORDS SUMMARY | 2024-08-10 10:06 | XMS_ITS | Clinical Summary ---
Author Organization [facility] Address [address] [place] [address] Phone Care Team Providers Care Senior Mechanical Project Engineer Name Role Phone Unavailable Primary Care Provider [...] has proxy guardianship - this is what [facility] recommends now Assessment & Plan (02/25/2020 1:52 PM EDT): Getting supports through school till 22 years of age Assessment & Plan (02/16/2019 9:40 AM EDT): In Functional Skills classroom at [employer] Next Fall will need to see dance teacher again about getting another nexplanon Resolved Problems Problem Noted Date Diagnosed Date Resolved Date 'Dbckv-[id number]-[id number]' infant wit h signs of malnutrition 02/16/2019 [...] Medical History Relation Name Comments Alcoholism Father Dane Asthma Mother Funmilayo Relation Name Status Comments [...] Completed 02/16/2019, 013 Procedures * Due to [place] [employer] law, this organization might not be sharing sensitive test results. Procedure Name Priority Date/Time Associated Diagnosis Comments CHLAMYDIA AND GONORRHEA, AMPLIFIED Routine 04/25/2022 9:05 AM EST Encounter for screening examination for sexually transmitted disease from Last 3 Months or Most Recently Relevant to Health Maintenance Results * Due to [place] [employer] law, this organization might not be sharing sensitive test results. * Chlamydia and Gonorrhoea, Amplified (04/25/2022 9:05 AM EST) Chlamydia Trachomatis, DNA Probe NEGATIVE (NEG) [facility] Comment: No Chlamydia Trachomatis RNA detected in this patient's sample ? (REFERENCE RANGE/NORMAL VALUE: NOT DETECTED) ? Note: This test uses personnel counselor- mediated amplification method to detect rRNA from C. Trachomatis URINE GC AMP PROBE NEGATIVE (NEG) [facility] Comment: No Neisseria Gonorrhoeae RNA detected in this patient's sample ? (REFERENCE RANGE/NORMAL VALUE: NOT DETECTED) ? NOTE: This test uses personnel counselor-mediated amplification method to detect rRNA from N.Gonorrhoeae. [...] without risk of sexual abuse. Consult the [facility] if needed. Contact phone number . Therapeutic failure or success cannot be determined with the Aptima Combo2 assay since nucleic acid may persist following appropriate antimicrobial therapy. The Centers for Disease Control and Prevention (CDC) recommends confirmatory retesting using culture or a different nucleic acid amplification test when positive results occur, if indicated. Testing performed or reported by [facility], a Service of [facility], [facility] [place] [address] Danial Cash MD, Tool Design Drafter [facility]# [id number] Urine (Urine) 04/25/2022 9:0 5 AM EST 04/25/2022 2:42 PM EST us Wendy Jones MD LAB MICROBIOLOGY - GENERAL ORDER TAPAN Final Result [facility] from Last 3 Months or Most Recently Relevant to Health Maintenance
--- OUTSIDE RECORDS SUMMARY | 2024-08-10 10:06 | XMS_ITS | Encounter Summary ---
Author Organization [facility] Address [address] [place] [address] Phone Care Team Providers Care Winder Hand Name Role Phone Wendy Jones MD Primary Care Provider [phone] Encounter Details Date Type Department Care Team (Late st Contact Info) Description 10/24/2011 Documentation [facility] [address] [place] [address] Family Medicine, Physician [address] [place], [place] [phone] Social History Tobacco Use Types Packs/Day Years [...] on filedocumented in this encounter Care Teams Winder Hand Relationship Specialty Start Date End Date Wendy Jones MD [address] [place] [address] PCP - General 01/18/17 11/05/22 documented as of this encounter
--- OUTSIDE RECORDS SUMMARY | 2024-08-10 10:06 | XMS_ITS | Encounter Summary ---
Author Organization [facility] Address [address] [place] [address] Phone Care Team Providers Care Snow Remover Name Role Phone Wendy Jones MD Primary Care Provider [phone] Encounter Details Date Type Department Care Team (Late st Contact Info) Description 04/13/2011 Documentation [facility] [place] [address] [place] [address] Family Medicine, Physician [address] [place], [place] [phone] Social History Tobacco Use Types Packs/Day Years [...] on filedocumented in this encounter Care Teams Snow Remover Relationship Specialty Start Date End Date Wendy Jones MD [address] [place] [address] PCP - General 01/18/17 11/05/22 documented as of this encounter
--- OUTSIDE RECORDS SUMMARY | 2024-08-10 10:06 | XMS_ITS | Encounter Summary ---
Author Organization [facility] Address [address] [place] [address] Phone Care Team Providers Care Observer Helper Name Role Phone Wendy Jones MD Primary Care Provider [phone] Encounter Details Date Type Department Care Team (Late st Contact Info) Description 09/20/2010 Documentation [facility] [place] Family Medicine [address] [place] [address] Family Medicine, Physician [address] [place], [place] [phone] Social History Tobacco Use Types Packs/Day Years [...] on filedocumented in this encounter Care Teams Observer Helper Relationship Specialty Start Date End Date Wendy Jones MD [address] [place] [address] PCP - General 01/18/17 11/05/22 documented as of this encounter
--- OUTSIDE RECORDS SUMMARY | 2024-08-10 10:06 | XMS_ITS | Encounter Summary ---
Author Organization [facility] Address [address] [place] [address] Phone Care Team Providers Care Utility Locate Technician Name Role Phone Wendy Jones MD Primary Care Provider [phone] Encounter Details Date Type Department Care Team (Late st Contact Info) Description 06/15/2016 Documentation [facility] [place] Family Medicine [address] [place] [address] Family Medicine, Physician [address] [place], [place] [phone] Social History Tobacco Use Types Packs/Day Years [...] on filedocumented in this encounter Care Teams Utility Locate Technician Relationship Specialty Start Date End Date Wendy Jones MD [address] [place] [address] PCP - General 01/18/17 11/05/22 documented as of this encounter
--- OUTSIDE RECORDS SUMMARY | 2024-08-10 10:06 | XMS_ITS | Encounter Summary ---
Author Organization [facility] Address [address] [place] [address] Phone Care Team Providers Care Rubber Roller Grinder Name Role Phone Wendy Jones MD Primary Care Provider [phone] Encounter Details Date Type Department Care Team (Late st Contact Info) Description 03/27/2011 Documentation [facility] [place] [address] [place] [address] Family Medicine, Physician [address] [place], [place] [phone] Social History Tobacco Use Types Packs/Day Years [...] on filedocumented in this encounter Care Teams Rubber Roller Grinder Relationship Specialty Start Date End Date Wendy Jones MD [address] [place] [address] PCP - General 01/18/17 11/05/22 documented as of this encounter
--- OUTSIDE RECORDS SUMMARY | 2024-08-10 10:06 | XMS_ITS | Encounter Summary ---
Author Organization [facility] Address [address] [place] [address] Phone Care Team Providers Care Back Tufter Name Role Phone Wendy Jones MD Primary Care Provider [phone] Encounter Details Date Type Department Care Team (Late st Contact Info) Description 04/09/2012 Documentation [facility] [place] [address] [place] [address] Family Medicine, Physician [address] [place], [place] [phone] Social History Tobacco Use Types Packs/Day Years [...] on filedocumented in this encounter Care Teams Back Tufter Relationship Specialty Start Date End Date Wendy Jones MD [address] [place] [address] PCP - General 01/18/17 11/05/22 documented as of this encounter
--- OUTSIDE RECORDS SUMMARY | 2024-08-10 10:06 | XMS_ITS | Encounter Summary ---
Author Organization [facility] Address [address] [place] [address] Phone Care Team Providers Care Director Of Product Design Name Role Phone Wendy Jones MD Primary Care Provider [phone] Encounter Details Date Type Department Care Team (Late st Contact Info) Description 04/15/2012 Documentation [facility] [address] [place] [address] Family Medicine, Physician [address] [place], [place] [phone] Social History Tobacco Use Types Packs/Day Years [...] on filedocumented in this encounter Care Teams Director Of Product Design Relationship Specialty Start Date End Date Wendy Jones MD [address] [place] [address] PCP - General 01/18/17 11/05/22 documented as of this encounter
--- OUTSIDE RECORDS SUMMARY | 2024-08-10 10:06 | XMS_ITS | Encounter Summary ---
Author Organization [facility] Address [address] [place] [address] Phone Care Team Providers Care Special Service Officer Name Role Phone Wendy Jones MD Primary Care Provider [phone] Encounter Details Date Type Department Care Team (Late st Contact Info) Description 03/26/2011 Documentation [facility] Family Medicine [address] [place] [address] Family Medicine, Physician [address] [place], [place] [phone] Social History Tobacco Use Types Packs/Day Years [...] on filedocumented in this encounter Care Teams Special Service Officer Relationship Specialty Start Date End Date Wendy Jones MD [address] [place] [address] PCP - General 01/18/17 11/05/22 documented as of this encounter
--- OUTSIDE RECORDS SUMMARY | 2024-08-10 10:06 | XMS_ITS | Encounter Summary ---
Author Organization [facility] Address [address] [place] [address] Phone Care Team Providers Care Rn Field Name Role Phone Wendy Jones MD Primary Care Provider Encounter Details Date Type Department Care Team (Late st Contact Info) Description 10/15/2011 Documentation [facility] [place] Family Medicine [address] [place] [address] Family Medicine, Physician [address] [place], [place] [phone] Social History Tobacco Use Types Packs/Day Years [...] on filedocumented in this encounter Care Teams Rn Field Relationship Specialty Start Date End Date Wendy Jones MD [address] [place] [address] PCP - General 01/18/17 11/05/22 documented as of this encounter
== END 2024-08-10 09:34 | disposition home or self-care (01) ==
PROVIDERS: PCP Internal Medicine; Visit Provider Obstetrics & Gynecology
DX: Z30.017 Encounter for initial prescription of implantable subdermal contraceptive (principal); Z32.02 Encounter for pregnancy test, result negative
CPT/HCPCS: 11981

== ENCOUNTER 2024-11-12 12:31 | Outpatient (AMB) | payer OTHER, SELFPAY ==
--- NOTE | 2024-11-12 12:47 | A.OFFPC_ITS ---
Vital Signs 11/12/24 12:52 Height 5 ft 1 in Weight 171 lb 2 oz BMI 32.3 BP 120/64 Blood Pressure Location Lt brachial Position Sitting Pulse 76 Pulse Source Pulse Oximeter Temp 97.3 F Temp Source Temporal Artery Scan Pulse Oximetry (%) 98 Oxygen Delivery Method Room Air Intake Visit Reasons: Annual Exam - see comments Intake Note: Patient is here today for a physical. Music Educator Required: No Change Of Address Clerk: Present Accompanied by: Mother Allergies Seasonal Allergies Allergy (Mild, Verified 11/12/24 13:22) Dry Eye Medication List - Last Reconciled 11/12/24 by Ilya Cope MD etonogestrel (Nexplanon) subdermal Tobacco use date assessed: 11/12/24 Dental Screening Dental Screen Date: 11/12/24 Did you have a dental visit in the last 12 months?: Yes Did you have a dental problem in the last 6 months where you did not have access to dental care?: No Was dental information given to patient?: Patient has dentist HPI Annual Exam - see comments HPI Details 24 yr old female presents to the office requesting an annual physical. She is accompanied by her mother. Mother is requesting an appt at [facility] to determine the impairment of her cognitive developmental delay as an adult. Also would like a dermatology referral to get the warts removed on her foot. Has a rash on the scalp she would like examined. [facility] Medical History Cognitive developmental delay Warts of foot Seborrheic dermatitis Surgical History No pertinent past surgical history Family History Mother Mental and behavioral problem HTN (hypertension) Father Mental and behavioral problem Substance abuse Other Mental health disorder Substance use disorder Social History Household Members: Adopted Family Housing: House Alcohol intake: never Patient Tobacco Use Status: Never used Tobacco e-Cigarette/Vaping Use: Never Used Second Hand Smoke Exposure: No service: No Current occupational status: employed Current occupation: [employer] Cognitive needs: No Hearing needs: No Vision needs: Yes (glasses ) Questionnaire PHQ-9 Over the last 2 weeks, how often have you been bothered by any of the following problems? 1. Little interest or pleasure in doing things: nearly every day 2. Feeling down, depressed, or hopeless: not at all 3. Trouble falling or staying asleep, or sleeping too much: not at all 4. Feeling tired or having little energy: not at all 5. Poor appetite or overeating: not at all 6. Feeling bad about yourself - or that you are a failure or have let yourself or your family down: not at all 7. Trouble concentrating on things, such as reading the newspaper or watching television: not at all 8. Moving or speaking so slowly that other people could have noticed. Or the opposite - being so fidgety or restless that you have been moving around a lot more than usual: not at all 9. Thoughts that you would be better off or of hurting yourself in some way: not at all Total score: 3 Depression Screening Interpretation: Negative Depression Screening Done: Yes Source: Developed by Drs. Vinny Gaming, Kay Ayala, Keagan Camacho and colleagues, with an educational christine from [employer]. Thrive Questionnaire Date Thrive assessed: 11/12/24 I am a: Patient What is your living situation today?: I choose not to answer this question Within the past 12 months, did the food you bought not last and you didn't have the money to get more?: I choose not to answer this question Within the past 12 months, did you worry whether your food would run out before you got money to buy more?: I choose not to answer this question Do you have trouble paying for medicines?: No Do you have trouble getting transportation to medical appointments?: No Do you have trouble paying your heating and electricity bill?: I choose not to answer this question Do you have trouble taking care of your child, family member or friend?: I choose not to answer this question Do you have trouble with day-to-day activities such as bathing, preparing meals, shopping, managing finances, etc.?: No Are you currently unemployed and looking for a job?: No Are you interested in more education?: Yes Please select the resources that you would like help with: None Currently or been in a relationship where the following occur: I choose not to answer THRIVE Score: 0 AUDIT C Alcohol Use Questionnaire (AUDIT-C) 1. How often do you have a drink containing alcohol?: Never 3. How often do you have six or more drinks on one occasion?: Never Total Score: 0 DONTAE-7 AMB Questionnaire DONTAE-7 Date DONTAE - 7 assessed: 11/12/24 Feeling nervous, anxious, or on edge: 0 = Not at all Not being able to stop or control worryin = Not at all Worrying too much about different things: 0 = Not at all Trouble relaxin = Not at all Being so restless that it is hard to sit still: 0 = Not at all Becoming easily annoyed or irritable: 0 = Not at all Feeling afraid as if something awful might happen: 0 = Not at all Total DONTAE-7 score (0-4 normal; 5-9 mild; 10-14 moderate; 15-21 severe): 0 Source: Developed by Drs. Vinny Gaming, Kay Ayala, Keagan Camacho and colleagues, with an educational christine from [employer]. Physical exam (Primary Care) Vital Signs: Last Vital Signs Temp 97.3 F 11/12/24 12:52 Pulse 76 11/12/24 12:52 BP 120/64 11/12/24 12:52 Pulse Ox 98 11/12/24 12:52 Oxygen Delivery Method Room Air 11/12/24 12:52 BMI result Body Mass Index 32.3 BMI Assessment/Plan discussion: High (One pound per week weight loss suggested.) BMI High, discussed plan: lifestyle and weight reduction Tobacco/Smoking Status: Tobacco use Status Tobacco use date assessed 11/12/24 11/12/24 13:00 Patient Tobacco Use Status Never used Tobacco 11/12/24 12:49 e-Cigarette/Vaping Use Never Used 11/12/24 12:49 PHQ-9: PHQ-9 Score PHQ-9: Total score 3 11/12/24 13:00 Depression Screening Interpretation: Negative Thrive Assessment: Date of Thrive Assessment Date Thrive assessed 11/12/24 11/12/24 12:49 Currently or been in a relationship where the following occur: I choose not to answer Const General: cooperative and healthy appearing Nutritional Appearance: well nourished Orientation/consciousness: patient oriented x3 Limitations: no limitations HENMT Head: Yes normal to inspection Eyes General: appearance normal, both eyes and all related structures Neck Neck: Yes normal visual inspection Chest Chest palpation & inspection: normal palpation of entire chest wall Resp Effort & Inspection: normal respiratory effort Skin Other: Scalp: Whitish crusty lesions on the scalp, easily dislodged, more in the frontal area in the scalp hair line. Neuro General: patient oriented x3 Extrem Other: warts over the dorsum of the foot. Coding Level of Care Code Complex EM visit Add On G2211 Diagnoses Cognitive developmental delay F81.9 Warts of foot B07.9 Seborrheic dermatitis L21.9 Annual physical exam Z00.00 Assessment & Plan Assessment & Plan (1) Cognitive developmental delay: Code(s): F81.9 - Developmental disorder of scholastic skills, unspecified Category: Medical Plan: An attempt was made to get a similiar consult last year too. Will check again. (2) Warts of foot: Code(s): B07.9 - Viral wart, unspecified Category: Medical Plan: Dermatology appt to be made (3) Seborrheic dermatitis: Code(s): L21.9 - Seborrheic dermatitis, unspecified Category: Medical Plan: Selenium sulphide shampoo called in (4) Annual physical exam: Code(s): Z00.00 - Encounter for general adult medical examination without abnormal findings Plan BW ordered. Orders: Orders Basic Metabolic Panel Today B07.9 - Viral wart, unspecified, F81.9 - Developmental disorder of scholastic skills, unspecified, L21.9 - Seborrheic dermatitis, unspecified Thyroid Stimulating Hormone Today B07.9 - Viral wart, unspecified, F81.9 - Developmental disorder of scholastic skills, unspecified, L21.9 - Seborrheic dermatitis, unspecified Complete Blood Count no Diff Today B07.9 - Viral wart, unspecified, F81.9 - Developmental disorder of scholastic skills, unspecified, L21.9 - Seborrheic dermatitis, unspecified Liver Panel Today B07.9 - Viral wart, unspecified, F81.9 - Developmental disorder of scholastic skills, unspecified, L21.9 - Seborrheic dermatitis, unspecified UA and rflx microscopic Today B07.9 - Viral wart, unspecified, F81.9 - Developmental disorder of scholastic skills, unspecified, L21.9 - Seborrheic dermatitis, unspecified Medications: New selenium sulfide 2.25% massage into affected area; leave on for 10 mins ; rinse off thoroughly 1 appl topical DAILY 7 days 180 mL 0RF
[2024-11-12 12:52] VITALS: BP 120/64; PULSE 76; TEMP 36.3; O2SAT 98; BMI 32.3
--- OUTSIDE RECORDS SUMMARY | 2024-11-12 14:37 | XMS_ITS | Encounter Summary ---
Author Organization [facility] Address [address] [place] [address] Phone Care Team Providers Care Computer Technology Instructor Name Role Phone Wendy Jones MD Primary Care Provider [phone] Encounter Details Date Type Department Care Team (Late st Contact Info) Description 09/20/2010 Documentation [facility] [place] [address] [place] [address] Family Medicine, Physician [address] [place], [place] [phone] Social History Tobacco Use Types Packs/Day Years [...] on filedocumented in this encounter Care Teams Computer Technology Instructor Relationship Specialty Start Date End Date Wendy Jones MD [address] [place] [address] PCP - General 01/18/17 11/05/22 documented as of this encounter
== END 2024-11-12 13:15 | disposition home or self-care (01) ==
LOC: HO.HMCH 12:32
PROVIDERS: PCP Internal Medicine; Visit Provider Internal Medicine
DX: Z00.00 Encounter for general adult medical examination without abnormal findings (principal); F81.9 Developmental disorder of scholastic skills, unspecified; B07.9 Viral wart, unspecified; L21.9 Seborrheic dermatitis, unspecified

== ENCOUNTER → 2024-11-12 12:31 | Outpatient (BNVA) | payer OTHER, SELFPAY | PROVIDERS: PCP Internal Medicine; Visit Provider Internal Medicine | DX: Z00.00 Encounter for general adult medical examination without abnormal findings (principal); F81.9 Developmental disorder of scholastic skills, unspecified; B07.9 Viral wart, unspecified; L21.9 Seborrheic dermatitis, unspecified | CPT/HCPCS: 99395 ==